=== PATIENT | female | born 1985 | race Two or more races ===

== ENCOUNTER 2016-07-26 15:14 | Emergency (ER) | payer SELFPAY ==
[~2016-07-26] VITALS: Ht 162.6 cm; Wt 54.4 kg
[2016-07-26 15:59] LABS: BASOPHILS % (AUTO) 0.3 % (0.0-2.0); DIFF TOTAL % 100 %; EOSINOPHILS # (AUTO) 0.2 /CMM (0.0-0.7); EOSINOPHILS % (AUTO) 3.5 % (0.0-6.0); HEMATOCRIT 34 % (33-45); HEMOGLOBIN 11.3 g/dL (11.5-14.8); LYMPHOCYTES % (AUTO) 14.5 % (20.0-44.0); MEAN CORPUSCULAR HEMOGLOBIN 30 PG (26.0-33.0); MEAN CORPUSCULAR HGB CONC 33 g/dl (31.0-36.0); MEAN CORPUSCULAR VOLUME 91 fL (82-100); MONOCYTES # (AUTO) 0.3 /CMM (0.1-1.30); MONOCYTES % (AUTO) 4.6 % (2.0-12.0); NEUTROPHILS # (AUTO) 5.3 /CMM (1.8-8.9); NEUTROPHILS % (AUTO) 77.1 % (43.0-81.0); PLATELET COUNT (AUTO) 210 /CMM (150-450); RED BLOOD CELL COUNT(AUTO) 3.73 MIL/uL (4.0-5.2); WHITE BLOOD COUNT (AUTO) 6.8 K/uL (4.3-11.0)
[2016-07-26 16:08] LABS: KETONES,URINE Negative (NEGATIVE); LEUKOCYTE ESTERASE ,URINE Small (NEGATIVE)
[2016-07-26 16:09] LABS: ADD UA MICROSCOPIC YES
[2016-07-26 16:10] LABS: ADD URINE CULTURE NO; RBC,URINE 0-2 /HPF (0-2); WBC,URINE 0-2 /HPF (0-3)
[2016-07-26 16:19] LABS: ALBUMIN 3.5 g/dL (3.4-5.0); BILIRUBIN,DIRECT 0.1 mg/dL (0.0-0.2); BILIRUBIN,TOTAL 0.3 mg/dL (0.2-1.0); CALCIUM, SERUM 9.6 mg/dL (8.5-10.1); CREATININE 0.5 mg/dL (0.6-1.3); INDIRECT BILIRUBIN 0.2 mg/dL (0.0-1.1); TOTAL PROTEIN, SERUM 7.7 g/dL (6.4-8.2)
[2016-07-26 16:54] LABS: POTASSIUM 3.9 mmol/L (3.5-5.1)
[2016-07-26 17:28] VITALS: BP 132/84
== END 2016-07-26 17:30 | disposition home or self-care (01) ==
LOC: ER 15:17
DX: O20.8 Other hemorrhage in early pregnancy (principal); Z3A.14 14 weeks gestation of pregnancy; R30.0 Dysuria
CPT/HCPCS: 36415; 76805; 80048; 80076; 81001; 83690; 84702; 84703; 85025; 86850; 99284; A4606; Z7610; 81000-TC

== ENCOUNTER 2017-05-24 09:24 | Emergency (ER) | payer MEDICAID ==
[~2017-05-24] VITALS: Ht 162.6 cm; Wt 54.0 kg
--- NOTE | 2017-05-24 09:30 | NUR ---
PRESENTS TO ER C/O LUMP ON RIGHT BREAST x 7 DAYS. C/O 10 PAIN. A/OX 4. BREATHING EVEN AND UNLABORED, NO SOB. VITALS STABLE. SAFETY AND COMFORT MEASURES IN PLACE. AWAITING MD ORDERS.
[2017-05-24] MEDS ORDERED: IBUPROFEN 400 MG TABLET PO ONE (10:00)
[2017-05-24] MEDS ORDERED: IBUPROFEN 400 MG TABLET ONE (10:15)
--- NOTE | 2017-05-24 10:17 | NUR ---
PATIENT MEDICATED PER MD ORDERS.
--- NOTE | 2017-05-24 10:35 | NUR ---
US TECH AT BEDSIDE.
--- NOTE | 2017-05-24 11:14 | NUR ---
Patient discharged to home in stable condition. Written and verbal after care instructions given. Patient verbalizes understanding of instruction.
[2017-05-24 11:15] VITALS: BP 132/81
== END 2017-05-24 11:15 | disposition home or self-care (01) ==
LOC: ER 09:27
DX: N60.01 Solitary cyst of right breast (principal); N63.10 Unspecified lump in the right breast, unspecified quadrant
CPT/HCPCS: 76642; 99284; A4606; Z7610